=== PATIENT | male | born 1990 | race Caucasian/White ===

== ENCOUNTER 2021-06-19 21:15 | Inpatient (IN) | payer MEDICAID, SELFPAY ==
[2021-06-19 21:16] VITALS: BP 174/101; PULSE 103; RESP 16; TEMP 36.3; O2SAT 99; BMI 32.5
[2021-06-19 21:22] VITALS: BP 155/98; PULSE 93; RESP 20; O2SAT 97
--- NOTE | 2021-06-19 21:44 | EX.ED.SAOD ---
HPI History of Present Illness Chief Complaint: Substance Abuse Informant: patient Onset/Context/Timing Onset: Weeks Context: Gradual Onset Timing: Continuous Current Severity: Mild Maximum Severity: Mild Narrative Narrative: 22-year-old male history of methamphetamine and alcohol abuse. States he drinks multiple alcoholic beverages a day. Denies ever going through detox. Denies any IV drug abuse or other drugs. States he was clean recently from the meth but he was substituting alcohol and now is using the meth again also. He denies any other medical history other than drug and alcohol abuse. Prior similar symptoms: Yes Recent Illness/Hospitalization: No PFSH PFSH Allergy/AdvReac Type Severity Reaction Status Date / Time No Known Allergies Allergy Verified 06/19/21 21:17 Social History Smoking Status: Current every day smoker tobacco type: cigarettes ROS ROS ED ROS Narrative Denies. Review of Systems ROS Unobtainable: Denies due to encephalopathy Constitutional Constitutional ED: Denies fever(s) Eyes Eyes: Denies change in vision ENT ENT ED: Denies ear pain Cardiovascular Cardiovascular: Denies chest pain Respiratory/Chest Respiratory/Chest: Denies dyspnea Gastrointestinal Gastrointestinal: Denies abdominal pain, diarrhea, nausea or vomiting Genitourinary Genitourinary ED: Denies dysuria Musculoskeletal Musculoskeletal: Denies myalgias Integumentary Denies rash Neurologic Neurologic: Denies headache(s) Psychiatric Psychiatric: Denies depression Endocrine Endocrinology: Denies polyuria Hematologic/Lymphatic Hematologic/Lymphatic: Denies easy bruising Allergic/Immunologic Allergic/Immunologic ED: Denies urticaria EXAM Physical Exam Narrative Exam Narrative: 31-year-old male no acute distress. Vital signs stable afebrile. H EENT exam unremarkable. Moist with membranes. Neck nontender. No lymphadenopathy. Lungs clear to auscultation bilaterally. Heart regular rate and rhythm rate about 90 no murmur. Chest wall nontender. Abdomen soft nontender. Moving all 4 extremities. Nontender no edema. Neurologically is awake and alert with no focal motor deficits. Const Vital Signs: 06/19/21 21:16 06/19/21 21:22 Temperature 97.3 F L Temperature Source Temporal Temporal Pulse Rate 103 H 93 Respiratory Rate 16 20 H Blood Pressure 174/101 H 155/98 H Blood Pressure Mean 125 117 Pulse Ox 99 97 Oxygen Delivery Method Room Air Room Air Positive well nourished and well developed; Negative for obese, cachectic, contractures or unkempt General Appearance ED: well developed and NAD; Negative for unkempt, cachectic, contractures or pallor Nutritional Appearance: Negative for cachectic or obese HEENT Reports moist mucous membranes atraumatic; Negative for trauma or tenderness Eyes PERRL and EOMs intact bilaterally Neck no lymphadenopathy, supple and no JVD Thyroid: Negative for tender Lymph Lymphatic: no lymphadenopathy noted and lymphadenopathy Chest Wall inspection of chest normal and palpation of chest normal Resp normal respiratory effort and clear to auscultation bilaterally Auscultation: Negative for rales, rhonchi, wheezes or other Cardio regular rate, regular rhythm, S1 normal heart sound, S2 normal heart sound and no murmurs GI soft to palpation, non-tender, non-distended and no masses Inspection: Negative for abdominal distention Palpation: Negative for tender, guarding or rigid Back/Spine no CVA tenderness General Back: Negative for CVA tenderness Cervical Spine: Negative for cervical spine tenderness Thoracic Spine / Upper Back: Negative for thoracic spinal tenderness Lumbar Spine / Lower Back: Negative for lumbar spinal tenderness Extremity General Extremety ED: Negative for edema or tenderness General Extremity: Negative for edema Neuro oriented x3 Sensorium / Orientation: alert, oriented to person, oriented to place and oriented to time; Negative for confused, lethargic or stuporous Motor Exam: strength 5/5 throughout Psych mental status grossly normal and thought process normal Appearance: Negative for unkempt Attitude: No agitated Mood & Affect: Negative for depressed or tearful Skin General Skin Exam: Negative for jaundice or pallor Lesions: no lesions Rashes: no rashes MDM MDM MDM Narrative Medical decision making narrative: Discussed with patient and his mother at bedside. They are requesting detox for alcohol abuse. I have already spoken to the hospitalist and he will be admitted. Discharge Plan Triage Chief Complaint: Substance Abuse ED Provider: Rafal Santana Dx/Rx/DC Orders Clinical Impression: Alcohol abuse, Admitted to alcohol detoxification center, History of methamphetamine abuse Disposition Disposition: Acute Care Hospital [facility]
--- NOTE | 2021-06-19 21:49 | PCM.HP.STD ---
HPI - General General Date of Admission: 06/19/21 HPI Narrative LILIANE BLANCHARD, is a 31 M who presents to the hospital requesting detox from alcohol and meth. He has been a longtime meth user and an try to get off of them at the transition to alcohol and now he is back to both drinking and using methamphetamines. He had been clean for about a year before he started using again, when asked why he restarted he did not really have a good answer. PFSH Allergy/AdvReac Type Severity Reaction Status Date / Time No Known Allergies Allergy Verified 06/19/21 21:17 Family History (Updated 06/19/21 @ 22:[address] Gurvinder Tomlinson MD) Other Heart disease no surgical history Social History Smoking Status: Current every day smoker tobacco type: cigarettes ROS Constitutional Constitutional: Denies chills, fatigue, fever(s) or malaise Eyes Eyes: Denies blurry vision ENT HEENT: Denies headache(s) or nasal discharge Cardiovascular Cardiovascular: Denies chest pain, dyspnea on exertion or syncope Respiratory/Chest Respiratory/Chest: Denies cough, shortness of breath at rest or shortness of breath with exertion Gastrointestinal Gastrointestinal: Denies constipation, diarrhea, nausea or vomiting Genitourinary Genitourinary: Denies dysuria Neurologic Neurologic: Denies focal weakness, numbness or tremor(s) Psychiatric Psychiatric: Denies anxiety or depression Vital Signs Vital Signs Vital Signs: 06/19/21 21:16 06/19/21 21:22 Temperature 97.3 F L Temperature Source Temporal Temporal Pulse Rate 103 H 93 Respiratory Rate 16 20 H Blood Pressure 174/101 H 155/98 H Blood Pressure Mean 125 117 Pulse Ox 99 97 Oxygen Delivery Method Room Air Room Air Weight Weight: 220 lb Body Mass Index (BMI) 32.5 Physical Exam Const alert, oriented x3 and no apparent distress General Appearance: cooperative HEENT normocephalic and moist oral mucous membranes Eyes PERRL, EOMs intact bilaterally and conjunctivae normal Neck supple and no JVD Resp normal respiratory effort, no retractions, no use of accessory muscles and clear to auscultation bilaterally Auscultation: Negative for crackles, rales, rhonchi or wheezes Cardio regular rate, regular rhythm, S1 normal heart sound, S2 normal heart sound and no murmurs GI soft to palpation, non-tender and non-distended; Negative for hepatosplenomegaly Extremity no clubbing, cyanosis or edema Skin no rashes or lesions noted Neuro no focal motor deficits and no sensory deficits noted Psych affect normal Appearance: appropriate Assessment & Plan Assessment/Plan (1) Alcohol abuse: (2) History of methamphetamine abuse: PLAN: 1. Alcohol withdrawal/methane ketamine abuse/tobacco abuse ?We will continue with the alcohol withdrawal protocol ?No need to follow-up with 180 as an outpatient ?He does chew tobacco discussed cessation, he does not want a nicotine patch at this time DVT: Ambulation Charges/Coding Visit Charges Inpatient E&M: 85912 Init Hosp L2
[2021-06-19 21:59] VITALS: BP 155/98; PULSE 93; RESP 20; TEMP 36.3; O2SAT 97
--- NOTE | 2021-06-19 22:09 | CM.ED ---
GERRY Note Referral Source: Case Find Referral Reason: Alcohol and Drug Use GERRY met with patient and his mother. Patient gave permission for this writer producer to speak to him in the presence of his mother. Patient said that he drinks 4 Wyarno's/day. Patient reports he started doing meth again recently. SW asked what recently meant and patient said a couple of weeks ago. SW asked how much meth patient has been doing and patient said not much. Patient was asked about AOD treatment and patient said he has had no current or past AOD treatment. However, patient's mother said that patient goes to Zoom meetings weekly at [facility] for AOD issues. Patient reports no previous detox. SW reviewed [facility] contract with patient and he agreed to all the points and signed the contract. SW was witness. Patient's mother asked about updates that she could receive. SW told patient that he will need to speak to the RN's and give them permission to speak to his mother. Patient verbalized understanding. GERRY called Michael, Treatment Navigator and updated her that patient is being admitted for alcohol and meth detox. Michael will follow up on 06/20/2021. Plan: SHIELA MENDOZA
--- NOTE | 2021-06-19 22:25 | CM.ED ---
SW Note SW also provided patient with [facility] Healthcare Provider list and Financial Packet including medicaid application and information on [facility]. Plan: Resources provided Rafael MENDOZA
[2021-06-19 22:58] VITALS: BMI 27.4
[2021-06-19 23:09] VITALS: BP 126/72; PULSE 79; RESP 18; TEMP 36.6; O2SAT 99
[2021-06-19] MEDS: Ondansetron 8 MG Tablet PO (23:17)
[2021-06-19] MEDS: Phenobarbital 32.4 MG Tablet PO (23:17)
[2021-06-19] MEDS: traZODone 100 MG Tablet PO (23:17)
[2021-06-20 02:00] VITALS: BP 132/75; PULSE 83; RESP 16; TEMP 37.1; O2SAT 97
[2021-06-20] MEDS: Phenobarbital 32.4 MG Tablet PO ×6 (02:23→21:49)
[2021-06-20] MEDS: Gabapentin 300 MG Capsule PO (02:27)
[2021-06-20 06:53] VITALS: BP 109/73; PULSE 74; RESP 18; TEMP 36.5; O2SAT 96
--- NOTE | 2021-06-20 09:29 | PCM.PN.HOSP ---
Subjective Subjective Feels well. No events overnight. Objective Data Objective Data Vital Signs: Vital Signs Temp Pulse Resp BP Pulse Ox 36.5 C L 74 18 109/73 96 06/20/21 06:53 06/20/21 06:53 06/20/21 06:53 06/20/21 06:53 06/20/21 06:53 Oxygen Delivery Method Room Air Weight: 84.3 kg Body Mass Index (BMI) 27.4 Intake & Output: Intake and Output for Last 24 Hours 06/18/21 06/19/21 06/20/21 23:59 23:59 23:59 Intake Total 500 / 500 Balance 500 / 500 Physical Exam Const Constitutional Narrative: Sleeping was woken and was alert. Neuro Sensorium / Orientation: awake and alert Psych affect normal Assessment & Plan Assessment/Plan (1) Admitted to alcohol detoxification center: (2) History of methamphetamine abuse: (3) Alcohol abuse: PLAN: 1. Acute alcohol withdrawal Continue with phenobarbital and thiamine and folate. [facility] to coordinate outpt care. Charges/Coding Visit Charges Inpatient E&M: 76269 Subs Hosp L1
[2021-06-20 10:15] VITALS: BP 120/67; PULSE 88; RESP 16; TEMP 36.6; O2SAT 98
[2021-06-20] MEDS: Thiamine Hydrochloride 100 MG Tablet PO (10:18)
[2021-06-20] MEDS: Folic Acid 1 MG Tablet PO (10:18)
[2021-06-20 14:00] VITALS: BP 129/70; PULSE 78; RESP 16; TEMP 36.7; O2SAT 98
[2021-06-20 18:30] VITALS: BP 117/73; PULSE 68; RESP 16; TEMP 37.1; O2SAT 94
[2021-06-20 20:16] VITALS: BP 125/79; PULSE 71; RESP 18; TEMP 36.8; O2SAT 98
[2021-06-20] MEDS: hydrOXYzine PAM 25 MG Capsule 50 MG PO (20:18)
[2021-06-20] MEDS: traZODone 100 MG Tablet PO (21:49)
[2021-06-21 02:30] VITALS: BP 116/64; PULSE 74; RESP 18; TEMP 36.5; O2SAT 96
[2021-06-21] MEDS: Phenobarbital 32.4 MG Tablet PO ×6 (02:32→21:50)
--- NOTE | 2021-06-21 07:28 | PN.HOSP_ITS ---
Subjective Subjective Patient is a 31-year-old gentleman with history of polysubstance abuse including alcohol and methamphetamine who presented to the ED with a desire to undergo detox Objective Data Objective Data Vital Signs: Vital Signs Temp Pulse Resp BP Pulse Ox 97.7 F L 74 18 116/64 96 06/21/21 02:30 06/21/21 02:30 06/21/21 02:30 06/21/21 02:30 06/21/21 02:30 Oxygen Delivery Method Room Air Weight: 84.3 kg Body Mass Index (BMI) 27.4 Intake & Output: Intake and Output for Last 24 Hours 06/19/21 06/20/21 06/21/21 23:59 23:59 23:59 Intake Total 1200 / 1800 1000 / 1000 Balance 1200 / 1800 1000 / 1000 Medical Nutrition Assessment Dietitian: Malnutrition Criteria Met Start: 06/20/21 11:11 Freq: Status: Active Protocol: Document 06/20/21 11:11 SHOBHA (Rec: 06/20/21 11:11 SHOBHA [id number]) Nutrition Malnutrition Evidence of Malnutrition Exists Yes Malnutrition (severe): Social/Behavioral/ Environmental Evidenced By Suboptimal Energy Intake ( Severe),Weight Loss (Severe) Clinical Problem Acute Disease or Injury Related Malnutrition Etiology related to alcohol/drug addiction and inability to meet est nutritional needs d/t decreased appetite for healthy foods/fluids Signs/Symptoms as evidenced by <50% po intake and 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 SKIN: No Rash PSYCH; Flat affect Assessment & Plan Assessment/Plan (1) Admitted to alcohol detoxification center: (2) History of methamphetamine abuse: (3) Alcohol abuse: PLAN: Patient is a 31-year-old gentleman with history of polysubstance abuse including alcohol and methamphetamine who presented to the ED with a desire to undergo detox 1. Acute alcohol withdrawal ?Admitted to regular nursing floor currently being managed with phenobarb taper 2. Methamphetamine abuse ?Counseled on cessation currently being treated symptomatically 3. Tobacco dependence - Counseled on cessation, offered nicotine patch for tobacco cravings 4. Malnutrition (severe Evidenced by suboptimal Energy Intake Severe, Severe Weight Loss. Recommendations as per dietitian 5. DVT Prophylaxis encouraged early ambulation Charges/Coding Visit Charges Inpatient E&M: 43626 Subs Hosp L2
[2021-06-21] MEDS: Thiamine Hydrochloride 100 MG Tablet PO (09:53)
[2021-06-21] MEDS: Folic Acid 1 MG Tablet PO (09:53)
[2021-06-21] MEDS: hydrOXYzine PAM 25 MG Capsule 50 MG PO ×2 (09:53→20:35)
[2021-06-21 10:09] VITALS: BP 115/73; PULSE 96; RESP 16; TEMP 36.5; O2SAT 97
--- NOTE | 2021-06-21 10:44 | ADDICTION ---
This radio script writer met with PT to conduct ASAM, MSE, AUDIT, DUDIT assessments and to plan for d/c. PT A+Ox4 and participated actively. All assessments completed and placed in PT's chart. PT plans to f/u with [facility] if approved for residential treatment if approved and follow-up counseling services.
[2021-06-21 14:05] VITALS: BP 116/76; PULSE 76; RESP 16; TEMP 36.6; O2SAT 98
[2021-06-21 14:07] VITALS: BP 116/73; PULSE 76; RESP 16; TEMP 36.6; O2SAT 98
--- NOTE | 2021-06-21 14:52 | CHAPLAIN ---
Type of Pastoral Visit _x__ Initial Visit ___ Follow-up Visit ___ On-call Visit ___ General Patient Visit ___ Spiritual Assessment ___ Family Conference ___ Bereavement ___ Rapid Response ___ Code Blue ___ Other (describe below) Pastoral Care Referral From ___ Patient ___ Family _x__ Nurse ___ Physician ___ Brake Drum Lathe Operator ___ Secretary Administrative Assistant ___ Other (describe below) Sacrament/Intervention _x__ Active listening ___ Anointing ___ Episcopalian ___ Bereavement ___ Communion ___ Sola exploration ___ ___ Life review ___ Prayer ___ Reconciliation ___ Sacrament of Sick ___ Supportive presence ___ Wedding ___ Other (describe below) Pastoral Comments patient is awake and watching TV; pt is willing to talk and speaks of his decision to seek help for alcohol abuse; pt has an initial plan; pt will seek employment after he goes through inpatient treatment; pt states his mother is very supportive; pt has no other concerns at this time
[2021-06-21 20:24] VITALS: BP 122/74; PULSE 67; RESP 16; TEMP 36.4; O2SAT 97
[2021-06-21] MEDS: traZODone 100 MG Tablet PO (21:50)
[2021-06-22 02:35] VITALS: BP 107/64; PULSE 55; RESP 16; TEMP 36.3; O2SAT 98
[2021-06-22] MEDS: Phenobarbital 32.4 MG Tablet PO ×4 (02:41→17:24)
--- NOTE | 2021-06-22 08:26 | PCM.PN.HOSP ---
Subjective Subjective Patient seen complains of feeling tired. Plan is to observe patient for 1 additional day with possible discharge on 06/23/2021 Objective Data Objective Data Vital Signs: Vital Signs Temp Pulse Resp BP Pulse Ox 97.4 F L 55 L 16 107/64 98 06/22/21 02:35 06/22/21 02:35 06/22/21 02:35 06/22/21 02:35 06/22/21 02:35 Oxygen Delivery Method Room Air Weight: 84.3 kg Body Mass Index (BMI) 27.4 Intake & Output: Intake and Output for Last 24 Hours 06/20/21 06/21/21 06/22/21 23:59 23:59 23:59 Intake Total 1200 / 1800 2200 / 2700 1000 / 1000 Balance 1200 / 1800 2200 / 2700 1000 / 1000 Medical Nutrition Assessment Dietitian: Malnutrition Criteria Met Start: 06/20/21 11:11 Freq: Status: Active Protocol: Document 06/20/21 11:11 SHOBHA (Rec: 06/20/21 11:11 SHOBHA [id number]) Nutrition Malnutrition Evidence of Malnutrition Exists Yes Malnutrition (severe): Social/Behavioral/ Environmental Evidenced By Suboptimal Energy Intake ( Severe),Weight Loss (Severe) Clinical Problem Acute Disease or Injury Related Malnutrition Etiology related to alcohol/drug addiction and inability to meet est nutritional needs d/t decreased appetite for healthy foods/fluids Signs/Symptoms as evidenced by <50% po intake and 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 SKIN: No Rash PSYCH; Flat affect Assessment & Plan Assessment/Plan (1) Admitted to alcohol detoxification center: (2) History of methamphetamine abuse: (3) Alcohol abuse: PLAN: Patient is a 31-year-old gentleman with history of polysubstance abuse including alcohol and methamphetamine who presented to the ED with a desire to undergo detox 1. Acute alcohol withdrawal ?Admitted to regular nursing floor currently being managed with phenobarb taper ?06/22/2021; Patient seen complains of feeling tired. Plan is to observe patient for 1 additional day with possible discharge on 2. Methamphetamine abuse ?Counseled on cessation currently being treated symptomatically 3. Tobacco dependence - Counseled on cessation, offered nicotine patch for tobacco cravings 4. Malnutrition (severe Evidenced by suboptimal Energy Intake Severe, Severe Weight Loss. Recommendations as per dietitian 5. DVT Prophylaxis encouraged early ambulation Charges/Coding Visit Charges Inpatient E&M: 91911 Subs Hosp L2
[2021-06-22 10:09] VITALS: BP 99/55; PULSE 61; RESP 18; TEMP 36.7; O2SAT 98
[2021-06-22] MEDS: hydrOXYzine PAM 25 MG Capsule 50 MG PO ×3 (10:16→21:05)
[2021-06-22] MEDS: Folic Acid 1 MG Tablet PO (10:16)
[2021-06-22] MEDS: Thiamine Hydrochloride 100 MG Tablet PO (10:16)
--- NOTE | 2021-06-22 11:44 | ADDICTION ---
Pt has agreed to PHP. Pt reported that he was unsure of residential and did not believe he needed it yet. Mom would like to be called once Pt is discharged.
[2021-06-22 17:23] VITALS: BP 110/67; PULSE 64; RESP 18; TEMP 36.4; O2SAT 96
[2021-06-22 20:57] VITALS: BP 125/75; PULSE 85; RESP 16; TEMP 36.7; O2SAT 98
[2021-06-22] MEDS: traZODone 100 MG Tablet PO (21:05)
[2021-06-23] MEDS: Phenobarbital 32.4 MG Tablet PO ×3 (00:50→12:07)
[2021-06-23 02:52] VITALS: BP 103/63; PULSE 55; RESP 16; TEMP 36.6; O2SAT 97
--- NOTE | 2021-06-23 07:18 | DS.PCM_ITS ---
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 Acute alcohol withdrawal ?Admitted to regular nursing floor currently being managed with phenobarb taper ?06/22/2021; Patient seen complains of feeling tired. Plan is to observe patient for 1 additional day with possible discharge on 2. Methamphetamine abuse ?Counseled on cessation currently being treated symptomatically 3. Tobacco dependence - Counseled on cessation, offered nicotine patch for tobacco cravings 4. Malnutrition (severe Evidenced by suboptimal Energy Intake Severe, Severe Weight Loss. Recommendations as per dietitian 5. DVT Prophylaxis encouraged early ambulation Physical Exam Narrative GENERAL: cooperative HEENT: Atraumatic; EYES; Anicteric, Normal Conjunctiva NECK; supple, normal thyroid, RESPIRATORY: Diminished to auscultation CARDIOVASCULAR: Regular S1 S2, GI: soft, normoactive bowel sounds, : No Renal angle tenderness; EXTREMITIES: No edema, no clubbing, MUSCULOSKELETAL: no muscle wasting NEURO: Awake; no lateralizing signs. SKIN: No Rash PSYCH; Flat affect Medical Records Data Medical Nutrition Assessment Dietitian: Malnutrition Criteria Met Start: 06/20/21 11:11 Freq: Status: Active Protocol: Document 06/20/21 11:11 SHOBHA (Rec: 06/20/21 11:11 SHOBHA [id number]) Nutrition Malnutrition Evidence of Malnutrition Exists Yes Malnutrition (severe): Social/Behavioral/ Environmental Evidenced By Suboptimal Energy Intake ( Severe),Weight Loss (Severe) Clinical Problem Acute Disease or Injury Related Malnutrition Etiology related to alcohol/drug addiction and inability to meet est nutritional needs d/t decreased appetite for healthy foods/fluids Signs/Symptoms as evidenced by <50% po intake 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 Problem Recommendation Dietitian Recommendations/Changes Will change diet to Regular - may have snacks 3x/day Continue ONS w/ medpass Weight / BMI Weight Weight: 84.3 kg Body Mass Index (BMI) 27.4 D/C Instructions Discharge Diet: No restrictions Discharge Activity: Return to Normal Activity Call your doctor if you observe: Fever of 101 or Higher, Shortness of breath, Fainting spells and Chest pain Meaningful Use Info Meaningful Use Diagnoses (Choose all that apply): None applicable Discharge Plan Admission Admit Date/Time: 06/19/21 21:49 Attending Provider: Leandro Quevedo Primary Care Provider: Care Physician,No Primary Discharge Orders/Prescriptions Prescriptions: No Action NK RF: 0 Referrals / Follow Up: Care Physician,No Primary [Primary Care Provider] - Disposition Disposition (needs filled in before D/C Order can be placed): Home, Self Care Charges/Coding Visit Charges Inpatient E&M: 33123 Disch Hosp
[2021-06-23 08:00] VITALS: BP 100/65; PULSE 66; RESP 16; TEMP 36.3; O2SAT 98
[2021-06-23] MEDS: Thiamine Hydrochloride 100 MG Tablet PO (08:10)
[2021-06-23] MEDS: Folic Acid 1 MG Tablet PO (08:10)
[2021-06-23 12:08] VITALS: BP 133/89; PULSE 96; RESP 16; TEMP 36.7; O2SAT 98
== END 2021-06-23 12:37 | disposition home or self-care (01) | DRG 896 ==
LOC: ED 21:54 → MS3 21:55
PROVIDERS: Admitting Provider Family Medicine; Emergency Provider Emergency Medicine; Visit Provider Internal Medicine
DX: F10.139 Alcohol abuse with withdrawal, unspecified (principal); E43 Unspecified severe protein-calorie malnutrition; F15.10 Other stimulant abuse, uncomplicated; F17.210 Nicotine dependence, cigarettes, uncomplicated; F17.220 Nicotine dependence, chewing tobacco, uncomplicated; Z68.32 Body mass index [BMI] 32.0-32.9, adult; Y90.9 Presence of alcohol in blood, level not specified
CPT/HCPCS: 97802; 99285; A4216

== ENCOUNTER 2023-12-14 20:04 | Emergency (ER) | payer MEDICAID, SELFPAY ==
[2023-12-14 20:04] VITALS: BP 150/94; PULSE 121; RESP 20; TEMP 36.6; O2SAT 98; BMI 27.6
[2023-12-14 20:13] VITALS: RESP 18
[2023-12-14 21:09] LABS: Absolute Lymphocyte Count 1.53 X10^3/uL (0.83-4.51); Absolute Neutrophil Count 6.2 X10^3/uL (2.0-7.7); Basophil# 0.05 X10^3/uL; Basophil% 0.6 % (0-1); Eosinophil# 0.11 X10^3/uL; Eosinophils% 1.3 % (0-5); Hematocrit 44.7 % (40-54); Lymphocyte # 1.53 X10^3/ul (0.83-4.51); Lymphocyte % 17.8 % (19-41); Mean Corp Hgb Conc 35.8 g/dL (32-36); Mean Corpuscular Hgb 31.4 pg (27.0-32.0); Mean Corpuscular Volume 87.8 fL (80-94); Mean Platelet Vol. 9.2 fl (6.2-12.0); Monocyte# 0.66 X10^3/uL; Monocyte% 7.7 % (0-10); NRBC Flagged by Analyzer 0 % (0-5); Neutrophil # 6.23 X10^3/uL (2.7-7.7); Neutrophil % 72.3 % (47-70); Platelet Count 331 K/mm3 (150-450); RBC Distribution Width CV 14.6 % (11.6-14.6); RBC Distribution Width SD 46.5 fl (35.1-43.9); Red Blood Count 5.09 M/mm3 (4.6-6.2); White Blood Count 8.6 K/mm3 (4.4-11.0)
[2023-12-14 21:13] VITALS: O2SAT 18
--- NOTE | 2023-12-14 21:27 | ED.VIS.GI ---
HPI HPI - GI History of Present Illness Chief Complaint: Mental Health Narrative Narrative: 33-year-old male presents with reported nausea, vomiting, and vomited blood for the last week. Complains of epigastric to periumbilical pain as well. No previous surgeries. He states he drinks alcohol on a daily basis. He denies any exacerbating or alleviating factors. RN started protocol on him for psychiatry because he asked if it was possible to throw up bodies. According to the resource coordinator, additionally he stated to her that he thought that a line was eating his legs. He also admits to auditory hallucinations that a person named Luzma was speaking to him. Patient denies any problems with depression or anxiety, and states he is here because he has been vomiting blood for a week. [facility] Medical History Asthma Smoker Methamphetamine abuse Home Medications ?Medication ?Instructions ?Recorded ?Last Taken ?Type NK 06/19/21 Unknown History Allergy/AdvReac Type Severity Reaction Status Date / Time No Known Allergies Allergy Verified 12/14/23 20:04 Family History Other Heart disease Social History Smoking Status: Current every day smoker tobacco type: cigarettes ROS ROS ED ROS Narrative Constitutional: No fever, no chills. HEENT: No sore throat. No neck pain. No loss of vision. No rhinorrhea. Cardiovascular: No chest pain. No palpitations. No pedal edema. Respiratory: No cough, no shortness of breath. Abdominal: Positive epigastric to periumbilical abdominal pain. Reported hematemesis. Genitourinary: No dysuria. No hematuria. Musculoskeletal: No myalgias. No arthralgias. Neurologic: No headaches. No dizziness. No lightheadedness. Skin: No rash. No change in color. Psychiatric: No depression. No anxiety. Positive auditory hallucinations. Positive psychosis according to resource coordinator. EXAM Physical Exam Narrative Exam Narrative: Afebrile. Vital signs noted. PERRL, EOMI. Neck soft and supple without meningismus. Positive tachycardia. Lungs are clear to auscultation bilaterally. Abdomen is soft with minimal tenderness in the epigastrium to periumbilical area. No pain in the bilateral lower quadrants, no rebound or guarding. Neurological examination nonfocal and nonlateralizing. Psychiatric examination reveals no suicidal ideation. He does not appear to be internally stimulated. Currently no active psychosis on my examination. Const Vital Signs: 12/14/23 20:04 Temperature 98 F Temperature Source Temporal Pulse Rate 121 H Respiratory Rate 20 H Blood Pressure 150/94 H Blood Pressure Mean 112 Pulse Ox 98 Oxygen Delivery Method Room Air MDM MDM MDM Narrative Medical decision making narrative: I reviewed the patient's prior records. He has history of alcohol abuse and was admitted for detox a few years ago. Given his daily alcohol use he may have gastritis/alcoholic gastritis with bleeding versus hematemesis from Chioma-Driver tear. Protocol laboratories were entered but I changed it to a CMP and a lipase to check for pancreatitis given his reported continued vomiting. CBC was reviewed and he has normal white count of 8.6 and hemoglobin normal at 16.0, hematocrit 44.7. Platelet count normal at 331. I do feel that once he is medically cleared he may require a psychiatric evaluation by the crisis counselor for his reported psychosis to the RN. Ethyl alcohol is negative at 6, so I doubt alcohol intoxication as a form of his psychosis. He may be tachycardic from alcohol withdrawal however. He will be given thiamine and folate. I discussed with him the possibility of alcohol withdrawal and he states he usually drinks 2 drinks of hard liquor daily but has not had a drink in 2 days. I did obtain an EKG because he was tachycardic in triage. EKG was obtained and interpreted by myself independently as normal sinus rhythm at 70 bpm without ectopy or acute ST changes. No STEMI. History & Record Review Discussion w/independent historian: Patient Lab Data Attestation: I reviewed the patient's lab results. Labs: Laboratory Results - last 24 hr 12/14/23 20:59 WBC 8.6 RBC 5.09 Hgb 16.0 Hct 44.7 MCV 87.8 MCH 31.4 MCHC 35.8 RDW Std Deviation 46.5 H RDW Coeff of Saad 14.6 Plt Count 331 MPV 9.2 Immature Gran % (Auto) 0.300 Neut % (Auto) 72.3 H Lymph % (Auto) 17.8 L Kemper % (Auto) 7.7 Eos % (Auto) 1.3 Baso % (Auto) 0.6 Absolute Neuts (auto) 6.2 Absolute Lymphs (auto) 1.53 Nucleated RBC % 0 Ethyl Alcohol 6.0 Discharge Plan Triage Chief Complaint: Mental Health ED Provider: Hernandez Rogers Dx/Rx/DC Orders Prescriptions: No Action NK Primary Care Provider: Care Physician,No Primary Referrals: Care Physician,No Primary [Primary Care Provider] - Print Language: Swazi
[2023-12-14 21:35] VITALS: BP 129/88; PULSE 70; RESP 18; TEMP 36.7; O2SAT 98
--- NOTE | 2023-12-14 21:41 | EKG12_ITS ---
Test Reason : DYSRHYTHMIA Blood Pressure : / mmHG Vent. Rate : 070 BPM Atrial Rate : 070 BPM P-R Int : 142 ms QRS Dur : 080 ms QT Int : 396 ms P-R-T Axes : 005 -15 010 degrees QTc Int : 427 ms Normal sinus rhythm T wave abnormality, consider anterior ischemia Abnormal ECG Confirmed by ANTHONY LEE ([id number]), online content editor CARMENCITA BLEVINS ([id number]) on 12/19/2023 8:29:56 AM Referred By: Confirmed By:ANTHONY LEE
[2023-12-14 22:13] VITALS: BP 133/89; PULSE 71; RESP 18
[2023-12-14] MEDS: Folic Acid 1 MG in 0.9% Normal Saline (50mL Bag) 50 ML 200 MG IV (22:46)
[2023-12-14] MEDS: Phenobarbital Sodium 130 MG/ML Vial 100 MG IM (22:49)
[2023-12-14 23:00] VITALS: BP 138/84; PULSE 104; RESP 18; O2SAT 98
[2023-12-14] MEDS: Thiamine Hydrochloride 200 MG in 0.9% Normal Saline (50mL Bag) 50 ML IV (23:14)
[2023-12-15] VITALS (7 sets, daily range): BP systolic 109–148; BP diastolic 67–95; PULSE 71–79; RESP 16–18; TEMP 36.6–37.1; O2SAT 96–98
[2023-12-15 00:35] LABS: ALB/GLOB Ratio 0.9 RATIO (0.9-2.4); AST(SGOT) 96 U/L (15-37); Alanine Aminotransfer ALT/SGPT 159 U/L (16-61); Albumin, Serum 3.2 g/dL (3.2-5.0); Alkaline Phosphatase 101 U/L (45-117); Anion Gap 11 (5-15); BUN 7 mg/dL (7-18); BUN/Creat Ratio 8.8 RATIO (10-20); Calcium,Total 9.1 mg/dL (8.5-10.1); Chloride 98 mmol/L (98-107); EST Glomerular Filtration Rate 120 mL/min (>60); Est Glom Filt Rate - Afr Amer 145 mL/min (>60); Estimated Creatinine Clearance 133.79 ml/min; Globulin 3.7 g/dL (2.2-4.2); Glucose 110 mg/dL (74-106); Lipase 17 U/L (13-75); Protein, Total 6.9 g/dL (6.4-8.2); Sodium Level 134 mmol/L (136-145)
[2023-12-15] MEDS: Potassium Chloride Oral Tablet 20 MEQ 40 MEQ PO (01:16)
[2023-12-15 03:24] LABS: Amphetamine Urine VISTA POSITIVE (<1000 ng/mL); Barbiturate Urine VISTA NEGATIVE (< 200 ng/mL); Benzodiazepine Urine VISTA NEGATIVE (< 200 ng/mL); Cocaine Urine VISTA NEGATIVE (< 300 ng/mL); Ecstacy Urine VISTA POSITIVE (< 500 ng/mL); Methadone Urine VISTA NEGATIVE (< 300 ng/mL); PCP Urine VISTA NEGATIVE (< 25 ng/mL); THC Urine VISTA NEGATIVE (< 50 ng/mL); Vista UDS pH Range 6
--- NOTE | 2023-12-15 08:55 | ED.RN ---
[facility] accepted patient. Fax number [phone]. Awaiting transport
--- NOTE | 2023-12-15 10:25 | ED.RN ---
PTS MOTHER CALLED AND SHE WAS NOTIFIED OF WHERE THE PT IS GOING AND HIS CURRENT STATUS
--- NOTE | 2023-12-15 10:47 | ED.RN ---
ATTEMPTED TO CALL REPORT. INTAKE IS GOING TO CALL BACK ONCE THEY ARE READY FOR REPORT
--- NOTE | 2023-12-15 10:50 | ED.RN ---
REPORT GIVEN TO JOHN. AWAITING TRANSPORT
--- NOTE | 2023-12-15 12:49 | ED.RN ---
patients phone found while cleaning room, placed in bag with patient label and given to security.
== END 2023-12-15 12:36 ==
PROVIDERS: Emergency Provider Emergency Medicine; Visit Provider Emergency Medicine
DX: F22 Delusional disorders (principal); F10.10 Alcohol abuse, uncomplicated; Y90.0 Blood alcohol level of less than 20 mg/100 ml; F17.210 Nicotine dependence, cigarettes, uncomplicated
CPT/HCPCS: 80053; 80307; 82077; 83690; 85025; 93005; 96365; 96367; 96372; 99285; J7040; J7050; A4216; J3490